=== PATIENT | male | born 1955 ===

== ENCOUNTER 2017-05-22 12:54 | Emergency (ER) | payer BC ==
[2017-05-22] MEDS ORDERED: TETRACAINE/BENZOCAINE/BUTAMBEN 200 SPRAY ONE (13:40)
[2017-05-22] MEDS ORDERED: TETRACAINE/BENZOCAINE/BUTAMBEN 200 SPRAY TP PRN (13:54)
[2017-05-22] MEDS ORDERED: KETOROLAC TROMETHAMINE 30 MG/ML SOL IM ONE (13:55)
[2017-05-22] MEDS ORDERED: KETOROLAC TROMETHAMINE 30 MG/ML SOL ONE (13:57)
[2017-05-22] MEDS ORDERED: AMOXIL/CLAVULANATE 875/125 TAB PO SCH (14:15)
[2017-05-22 14:45] VITALS: BP 123/71; PULSE 70; RESP 20; TEMP 98.2; O2SAT 93
== END 2017-05-22 14:35 | disposition home or self-care (01) ==
LOC: ED 12:54
DX: K02.9 Dental caries, unspecified (principal)
CPT/HCPCS: 96372; 99282; 99283; J1885; A9270-GY